=== PATIENT | female | born 1990 | race Caucasian/White ===

== ENCOUNTER 2017-11-10 22:05 | Emergency (ER) | payer BC ==
[2017-11-10] MEDS ORDERED: Metoclopramide HCl 10 MG/2 ML VIAL ONE (22:25)
[2017-11-10] MEDS ORDERED: Famotidine/PF 20 mg/2ml Vial ONE (23:59)
[2017-11-11 00:17] LABS: Bilirubin Small (Negative); Blood, Urine Negative (Negative); Clarity CLEAR (Clear); Glucose, Urine (Dipstick) Negative (Negative); Leukocyte Negative (Negative); Nitrite Negative (Negative); Pregnancy Test - Urine (BHCG) Negative (Negative); Protein, Urine (Dipstick) Trace mg/dL (Neg-Trace); Specific Gravity 1.031 (1.002-1.036); Specific Gravity, Urine 1.031 (1.002-1.036); Urobilinogen 0.2 mg/dL (0.2-1.0); pH, Urine 5.5 (5.0-9.0)
[2017-11-11 00:18] LABS: Pregu Control Background? CLEAR/WHITE (CLR/WHITE); Pregu Control Bar Appear? YES (CONTROL BAR)
[2017-11-11] MEDS ORDERED: Ketorolac Tromethamine 30 MG/ML VIAL ONE (00:51)
== END 2017-11-11 01:34 | disposition home or self-care (01) ==
LOC: ERS 22:05
DX: R11.2 Nausea with vomiting, unspecified (principal); R19.7 Diarrhea, unspecified; E28.2 Polycystic ovarian syndrome; K58.9 Irritable bowel syndrome, unspecified; F41.9 Anxiety disorder, unspecified
CPT/HCPCS: 81003; 81025; 87086; 96361; 96372; 96374; 96375; J1885; J2765; S0028

== ENCOUNTER 2018-12-06 05:48 | Day surgery (SDC) | payer BC ==
[2018-12-06] MEDS ORDERED: Bupivacaine HCl 0.5%/Epinephrine 1:200,000/PF 30 ml Vial ONE (06:44)
[2018-12-06] MEDS ORDERED: Midazolam HCl 2 mg/2 ml Vial ONE ×2 (07:10→07:26)
[2018-12-06] MEDS ORDERED: Fentanyl 100 MCG/2 ML VIAL ONE (07:26)
[2018-12-06] MEDS ORDERED: Ertapenem 1 GM in Sodium Chloride 0.9% 100 ML IVPB ONE (08:00)
--- NOTE | 2018-12-06 08:42 | HP ---
CHIEF COMPLAINT: Abdominal pain. HISTORY: Ms. Dubois is a 28-year-old woman, who started to have some right-sided abdominal pain last night while she was preparing dinner. It went away for a while and she ate dinner without problems, but afterwards the pain came back and became progressively worse. Nothing that she tried at home was helping it. She does have irritable bowel syndrome and she did take some Bentyl, but this did not make any difference in her symptoms, so she came into her local emergency room, where she was diagnosed with appendicitis on CT scan. She did not have any fevers or chills. She has nausea, but no vomiting. No diarrhea or change in bowel habits. She received pain medication and antibiotics at the outside ER and is feeling a little better, but still has pain in the right lower quadrant. PAST MEDICAL HISTORY: Irritable bowel syndrome, anxiety, and PCOS. PAST SURGICAL HISTORY: Repair of a ruptured eardrum at 8 years old. MEDICATIONS: She takes a couple of herbal remedies for PCOS. She has prescription for Bentyl for her IBS and is currently taking Tamiflu because her daughter was diagnosed with flu. FAMILY HISTORY: Diabetes and heart disease on her dad's side. ALLERGIES: LATEX AND PENICILLIN. SOCIAL HISTORY: She does not smoke, drink, or use illicit drugs. 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 PHYSICAL EXAMINATION: VITAL SIGNS: The patient is afebrile. Heart rate is high normal. Other vitals are normal. GENERAL: Reveals a pleasant young woman, in no acute distress. She is not jaundiced or icteric. She is not flushed or toxic. HEENT: Unremarkable. NECK: Supple. HEART: Regular in its rate and rhythm without murmurs, rubs, or gallops. LUNGS: Clear to auscultation bilaterally. ABDOMEN: Soft and nondistended. She indicates the point of greatest tenderness just below McBurney's point. She is tender to palpation in the right lower quadrant and slightly tender in the left upper quadrant. She does not exhibit rigidity, rebound, or guarding. No palpable masses or hernias. EXTREMITIES: Warm and well perfused without edema. NEURO: No focal deficits. PSYCHIATRIC: Alert and oriented and appropriate. DIAGNOSTIC DATA: White count is elevated at 11.7 with a left shift. Hematocrit is low at 28. Electrolytes are unremarkable and test is negative. CT reports that the appendix is mildly inflamed and enlarged with some periappendiceal stranding with some mildly prominent lymph nodes near the ileocecal valve. ASSESSMENT: Early appendicitis. PLAN: Laparoscopic appendectomy. The patient's diagnosis and recommended treatment were discussed with her and her . Inherent risks were reviewed these include, but are not limited to, bleeding, infection, risks of anesthesia, damage to nearby structures including bowel, bladder, and blood vessels, need for open surgery, and need for other procedures. They understand and accepts these risks and wished to proceed. All of their questions were answered. She received ceftriaxone and Flagyl shortly after midnight and will receive a dose of Invanz on-call to the OR. Job ID: [id number]
[2018-12-06] MEDS ORDERED: Meperidine HCl/PF 25 MG/ML VIAL ONE (09:45)
[2018-12-06] MEDS ORDERED: Promethazine HCl 25 MG/ML VIAL ONE (09:50)
[2018-12-06] MEDS ORDERED: traMADol HCl 50 MG TAB ONE (12:36)
[2018-12-06] MEDS ORDERED: Dexamethasone 20 MG/5 ML VIAL ONE (15:16)
[2018-12-06] MEDS ORDERED: Ketorolac Tromethamine 30 MG/ML VIAL ONE (15:16)
[2018-12-06] MEDS ORDERED: PROPOFOL 200 MG/20 ML VIAL ONE (15:16)
[2018-12-06] MEDS ORDERED: Rocuronium Bromide 10 MG/ML (10ML VIAL) ONE (15:16)
[2018-12-06] MEDS ORDERED: Lidocaine 1% PF 5 ML VIAL ONE (15:16)
[2018-12-06] MEDS ORDERED: Succinylcholine Chloride 20 MG/ML 10 ml SYRINGE FS ONE (15:16)
[2018-12-06] MEDS ORDERED: Ondansetron PF 4 MG/2 ML Vial ONE (15:16)
--- NOTE | 2018-12-07 15:19 | PDOC.OP ---
Operative Note - Operative Note Operative Note: PROCEDURE: Laparoscopic appendectomy SURGEON: Remington Gastelum M.D. DATE OF PROCEDURE: 12/06/2018 PREOPERATIVE DIAGNOSIS: Appendicitis POSTOPERATIVE DIAGNOSIS: Appendicitis HISTORY: Patient presented with a one-day history of right-sided abdominal pain. CT showed acute appendicitis and recommendation was made to proceed with laparoscopic appendectomy. FINDINGS: Acutely inflamed appendix without evidence of perforation. Incidentally noted polycystic ovaries. An adhesion between the left fimbria and pelvic wall which was taken down to reduce risk of internal herniation. DESCRIPTION OF PROCEDURE: After informed consent was obtained and appropriate antibiotics continued, the patient was taken to the operating room and placed in the supine position and general endotracheal anesthesia was administered. The bladder was decompressed with a Drake catheter and the abdomen was prepped and draped in the standard sterile fashion. Local anesthesia was infused to the skin and subcutaneous tissues superior to the umbilicus. A transverse skin incision was made and a Veress needle placed into the abdominal cavity and carbon dioxide gas insufflated without difficulty. Opening pressure was less than 5. Carbon dioxide gas was insufflated to an intra-abdominal pressure 15 and the patient tolerated this well. The Veress needle was withdrawn and a Del Sol port advanced under direct laparoscopic vision into the abdominal cavity which was carefully examined. There was no evidence of Veress needle or of trocar injury. Two additional ports were placed in the suprapubic and left lateral abdomen under direct laparoscopic vision after local anesthesia was infused at these sites. The appendix was identified and appeared inflamed but not perforated. The appendix was grasped by the mesoappendix and elevated. The mesoappendix was then sequentially ligated and divided down to the base of the appendix, which was normal in appearance and was clearly seen to be at the confluence of the tenia. Two Endoloops were placed around the base of the appendix and the appendix was divided between these Endoloops, placed into an EndoCatch bag and drawn out through the suprapubic incision. The suprapubic trocar was then replaced and the operative site was easily irrigated to clear. The pelvis was examined and the patient was confirmed to have polycystic appearing ovaries. She had an adhesion between the left fimbria and the pelvic wall which created a possible site for internal herniation. This adhesion was divided and hemostasis verified. The suprapubic trocar was removed and the fascia closed under direct laparoscopic vision with a 0 Vicryl suture on a GraNee needle with excellent technical result. The left lateral trocar was then removed and hemostasis verified. Carbon dioxide gas was desufflated through the umbilical trocar which was then removed. The skin incisions were irrigated and additional local anesthesia infused at each site. The skin was closed with 4-0 subcuticular Monocryl sutures and Dermabond dressings were placed. The patient was extubated and taken to the recovery room in good condition. Estimated blood loss was minimal. There were no complications.
== END 2018-12-06 13:10 | disposition home or self-care (01) ==
LOC: SDC 05:48
PROVIDERS: ATTEND Surgery
PROC: 0DTJ4ZZ Resection of Appendix, Percutaneous Endoscopic Approach (ICD-10-PCS; principal; 2018-12-06)
DX: K35.80 Unspecified acute appendicitis (principal); E28.2 Polycystic ovarian syndrome; F41.9 Anxiety disorder, unspecified; K58.9 Irritable bowel syndrome, unspecified; Z79.899 Other long term (current) drug therapy; Z88.0 Allergy status to penicillin; Z91.040 Latex allergy status
CPT/HCPCS: 88304; J0670; J1100; J1335; J1885; J2001; J2175; J2250; J2405; J2550; J2704; J3010; J7050

== ENCOUNTER 2019-12-24 14:19 | Emergency (ER) | payer BC | END 2019-12-24 14:36 | disposition left against medical advice (07) | LOC: ERS 14:19 | DX: Z53.21 Procedure and treatment not carried out due to patient leaving prior to being seen by health care provider (principal) ==

== ENCOUNTER 2020-06-23 12:46 | Outpatient (CLI) | payer BC | END 2020-06-23 12:47 | disposition home or self-care (01) | PROVIDERS: ATTEND Family Medicine | DX: R00.2 Palpitations (principal) | CPT/HCPCS: 93225; 93226 ==